=== PATIENT | female | born 1960 | race Caucasian/White ===

== ENCOUNTER 2020-05-21 07:04 | Outpatient (CLI) | payer BC, SELFPAY ==
[2020-05-22 17:24] LABS: COVID-19 RT-PCR Result NEGATIVE (Negative)
== END 2020-05-21 07:24 ==
PROVIDERS: Visit Provider Surgery
DX: Z11.59 Encounter for screening for other viral diseases (principal); Z01.818 Encounter for other preprocedural examination
CPT/HCPCS: U0003

== ENCOUNTER 2021-06-26 15:39 | Outpatient (CLI) | payer BC, SELFPAY ==
--- NOTE | 2021-06-26 | DI.RAD_ITS ---
Exam(s) XR HAND LT COMPLETE XR WRIST LT COMPLETE EXAM: XR HAND LT COMPLETE and XR wrist LT complete CLINICAL HISTORY: LT WRIST PAIN, M25.532. TECHNIQUE: 2D digital imaging was performed of the left wrist and hand. Six views were obtained. A P, lateral and oblique views were obtained. COMPARISON: CR XR WRIST LT COMPLETE from 06/26/2021 CR XR WRIST LT COMPLETE from 06/26/2021 FINDINGS: BONES: No acute fracture is present. No bony destructive lesion is seen. JOINTS: No dislocation present. SOFT TISSUE: Normal. IMPRESSION: No acute abnormality. DATA REPOSITORY: RADIATION DOSE DELIVERED:
== END 2021-06-26 15:59 ==
PROVIDERS: Visit Provider Nurse Practitioner Family
DX: M25.532 Pain in left wrist (principal)
CPT/HCPCS: 73110; 73130

== ENCOUNTER 2021-12-22 10:02 | Day surgery (SDC) | payer BC, SELFPAY ==
[2021-12-22] MEDS: Tropicam./Phenyleph. (1/2.5%) 5 ML BTL OS ×3 (11:14→11:28)
--- NOTE | 2021-12-22 11:14 | W.ANESPRE ---
General Info Date of Service Date Performed: 12/22/21 Height: 5 ft 8 in Weight: 68.039 kg Body Mass Index (BMI): 22.8 Surgical Procedure: Operation Date: 12/22/21 12:10 Proposed Procedure Side Surgeon p Cataract Extraction with IOL Implant Left nAtonio Little MD Meds Allergies and Home Medications Allergies Allergy/AdvReac Type Severity Reaction Status Date / Time No Known Allergies Allergy Unverified 12/22/21 11:06 Home Medication Medication Instructions Recorded atorvastatin 10 mg tablet 10 mg PO HS 12/19/21 cholecalciferol (vitamin D3) 25 1,000 unit PO DAILY 12/19/21 mcg (1,000 unit) tablet (Vitamin D3) coenzyme Q10 100 mg capsule 100 mg PO DAILY 12/19/21 (CoQ-10) levothyroxine 125 mcg tablet 125 mcg PO DAILY 12/19/21 Current Visit Medications: Current Medications Generic Name Dose Route Start Last Admin Trade Name Freq PRN Reason Stop Dose Admin Acetaminophen 1,000 mg 12/22/21 06:00 Acetaminophen 500 Mg Tab PO Q4H PRN PRN Miscellaneous Medication 0 ml 12/22/21 06:00 Prednisolone 1%, Moxifloxacin 0.5%, Nepafenac 0.1% 5ml Btl OS DIRECTED JAYA Miscellaneous Medication 0 ml 12/22/21 06:00 12/22/21 11:14 Tropicam./Phenyleph. (1/2.5%) 5 Ml Btl OS 1 drp DIRECTED JAYA Administration Tetracaine HCl 0 ml 12/22/21 06:00 Tetracaine 0.5% 4 Ml Btl OS DIRECTED JAYA PFSH Active Problems Active Problems: Problem Status Onset Code Posterior subcapsular age-related cataract of left eye H25.042 Medical History Medical History Anesthesia complication Per H&P note: Syncope 2 days later, HR below 35 post-op-Pt states this was during the laminectomy and knee arthroscopy. Per pt. 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 Per pt. 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 of marathon running, moy klein Surgical History Surgical History Hx of arthroscopy of knee Hx of colonoscopy Hx of cystoscopy Hx of laminectomy Tobacco Smoking/Tobacco Use Status: Never Alcohol Alcohol Intake: current Alcohol intake frequency: 0-2 drinks per day Alcohol type: beer Substance Use Substance use: Never Substance use type: does not use Vital Signs and Lab Results Lab Results Blood Type / Crossmatch: No Data to Display Complete Blood Count: No Data to Display Complete Metabolic Panel: No Data to Display Liver Function Panel: No Data to Display Coagulation Panel: No Data to Display Cardiac Panel: No Data to Display Arterial Blood Gas: No Data to Display Venous Blood Gas: No Data to Display Pancreas Panel: No Data to Display Thyroid Panel: No Data to Display Infectious Disease: No Data to Display Blood Cultures: No Data to Display Toxicology Panel: No Data to Display Anesthesia Assessment and Plan Anesthesia History Personal History: Other (Reports bradycardia and syncope two days after every surgery) Family History: No Family History of Anesthesia Complications Exercise Tolerance Exercise Tolerance: Metabolic Equivalents>4 Pertinent Negatives Pertinent Negatives: No Symptoms of GERD, No Major Cardiovascular Symptoms or Complaints, No Major Pulmonary Symptoms or Complaints and No History of CVA/TIA Cardiac & Pulmonary Exam Cardiac Exam: Normal S1/S2 Heart Sounds Pulmonary Exam: Clear Bilateral Breath Sounds Implantable Cardiac Device Does patient have a Pacemaker or an ICD?: No Airway Exam Known Difficult Airway: No Mallampati Class: 2 Mouth Opening: Normal (> 3cm) Thyromental Distance: Greater than 3 cm Neck Range of Motion: Full ROM Neck Circumference: Normal Teeth Condition: Normal Dentition ASA Classification ASA Score: ASA 2 Emergency Case?: No NPO Status NPO Status: NPO Clears >2 hours, Solids >8 hours Anesthesia Plan Resuscitation Status: Full Code Anesthesia Technique: MAC Anesthesia Airway Planned: Natural Airway Monitors Used: Standard Monitors
[2021-12-22 11:19] VITALS: BMI 22.8
[2021-12-22 11:24] VITALS: BP 131/87; PULSE 59; RESP 16; TEMP 36.7; O2SAT 97
[2021-12-22] MEDS: Tetracaine 0.5% 4 ML BTL OS (12:12)
[2021-12-22] MEDS: Balanced Salt Soln.-PLUS 500 ML BAG (12:13)
[2021-12-22] MEDS: Duovisc Viscoelastic System EACH 1 EACH (12:13)
[2021-12-22] MEDS: Lidocaine 2% Jelly 6 ML SYR (12:14)
[2021-12-22] MEDS: Povidone-Iodine Ophth 30 ML BTL (12:15)
[2021-12-22 12:30] VITALS: BP 134/95; PULSE 53; RESP 16; TEMP 36.6; O2SAT 98
--- NOTE | 2021-12-22 12:34 | W.PM.DSUDISC ---
Discharge Plan Disposition Patient Disposition: HOME Condition: Good Discharge Details Attending Provider: Antonio Little Primary Care Provider: No,Local Home Meds and New Rx's Prescriptions: No Action atorvastatin 10 mg Tablet 10 mg PO HS 0RF levothyroxine 125 mcg Tablet 125 mcg PO DAILY 0RF coenzyme Q10 [CoQ-10] 100 mg Capsule 100 mg PO DAILY 0RF cholecalciferol (vitamin D3) [Vitamin D3] 25 mcg (1,000 unit) Tablet 1,000 unit PO DAILY 0RF Discharge Instructions Stand Alone Forms: Post-op Topical Cataract, Angela Chaudhari (DSU) Discharge Orders Discharge Orders: Discharge Order (Routine); Ordered 12/22/21 Ordered By: Antonio Little DS: Diagnosis Discharge Diagnosis (1) Posterior subcapsular age-related cataract of left eye: Status: Resolved
--- NOTE | 2021-12-22 12:34 | W.PM.OP ---
Date of service: 12/22/21 Time of Service: 12:34 Operative Note Operative Note DATE OF PROCEDURE: 12/22/21 PRE-OP DIAGNOSIS: Posterior subcapsular cataract, left eye POST-OP DIAGNOSIS: same PROCEDURE: Cataract extraction using phacoemulsification with intraocular lens implant, left eye SURGEON: Antonio Little ANESTHESIA TYPE: Local By Surgeon and MAC Refer to Anesthesia Record PATHOLOGY: none sent COMPLICATIONS: None Patient was transported to: same day Patient's condition: stable Implants: Deejay and Deejay / [employer] Tecnis [id number] Indications: Progressive decreased vision due to cataract, left eye Procedure Description: CATARACT SURGERY OPERATIVE REPORT PREOPERATIVE DIAGNOSIS: 1. Posterior subcapsular cataract, left eye POSTOPERATIVE DIAGNOSIS: Same OPERATION: 1. Cataract extraction using phacoemulsification with posterior chamber intraocular lens implant, left eye. IOL: IOL Firer Helper/Model: Deejay & Deejay / CELESTE Tecnis [id number] IOL Power: + 25.5 diopters IOL Serial Number: [id number] Optic Diameter: 6.0 mm Haptic/Overall Diameter: 13.0 mm PHACO INFO: Herrera ElectroJeturion Vision System with OZil and Active Fluidics Cumulative Dispersed Energy (CDE): 10.61 seconds SURGEON: Antonio Little MD, JOHANNA ANESTHESIA: Monitored A [facility] (MAC), with local sub-tenon's anesthetic infiltration COMPLICATIONS: None SPECIMENS: None INDICATIONS FOR PROCEDURE: The patient is a 61-year-old lady who is previously status post hyperopic Lasix who has now developed asymptomatic posterior subcapsular cataract in the left eye. The option of cataract surgery was offered to the patient and she wished to proceed. PROCEDURE: The correct surgical eye was identified and marked as the left eye and the pupil was dilated in the preoperative area using mydriatics and cycloplegics. The dilated pupil size was 5.0 mm. She elected to proceed without oral sedation. The patient was brought to the operating room where cardiopulmonary monitoring was instituted and surgical time-out was performed, confirming the correct operative eye and IOL power. Topical anesthesia was administered and ophthalmic povidone-iodine 5% was instilled into the conjunctival fornices. Lidocaine gel was applied to the cornea and the linda-ocular area was prepped with Betadine 10% solution and draped in the usual sterile fashion for intraocular surgery, including an aperture drape. A Tegaderm transparent film dressing was cut in half and used to cover the lashes and lid margins. Care was taken to sequester the lashes and lid margins under the Tegaderm dressing. A lid speculum was placed between the lids of the operative eye and the Herrera Lux[employer] Revalia operating microscope was maneuvered into position. Karli scissors were then used to make a conjunctival buttonhole approximately 6mm posterior to the limbus in the inferonasal quadrant. Blunt dissection was carried out to expose bare sclera, and a blunt-tipped sub-tenon?s anesthesia cannula was introduced and passed posteriorly along the globe where non-preserved plain lidocaine was injected into posterior sub-Tenon?s space. A sideport knife was used to make a paracentesis port superiorly/superiortemporally. Intraocular phenylephrine/lidocaine was injected int the anterior chamber.. The anterior chamber was filled with viscoelastic. A 2.4mm keratome knife was used to create a half-thickness groove at the limbus and then to construct a three-plane near-clear corneal tunnel extending 2.0mm into clear cornea at the 3:00 position. A flap was raised on the anterior capsule and capsulorhexis forceps were used to complete a continuous curvilinear capsulorhexis of 5.0 mm. Balanced salt solution was then used to perform cortical cleaving hydrodissection and nuclear hydrodelineation until the lens could be freely rotated within the capsular bag. The lens nucleus was then disassembled and removed within the capsular bag and iris plane using phacoemulsification. Residual cortical material was removed using the 45-degree angled silicone I/A tip with 0.3mm port. The posterior capsule was carefully polished to remove as much residual lens epithelial cells as safely possible. The capsular bag was then inflated and the anterior chamber deepened with viscoelastic. The lens implant described above was inserted into the capsular bag using the CELESTE [place] Injector. A Kuglen hook was used to dial the IOL into position. Residual viscoelastic was then removed first from posterior to the IOL, then from the anterior chamber using the I/A handpiece. The lens implant was noted to center nicely within the capsular bag. The incisions were stromally hydrated, and the anterior chamber was reformed using BSS. Then 0.5cc of moxifloxacin 1.0mg/ml were injected into the capsular bag and anterior chamber. The incisions were checked with a Weck spear and found to be secure. Several drops of ophthalmic povidone-iodine 5% were then applied to the eye followed by two drops of Imprimis combination prednisolone/moxifloxacin/nepafenac solution. The drapes were removed and a clear plastic protective eye shield was placed over the eye. The patient was then returned to Same Day Surgery in stable condition.
--- NOTE | 2021-12-22 13:14 | W.ANESPOSTOP ---
Postoperative Evaluation Date, Time and Location Date Performed: 12/22/21 Time Performed: 12:30 Patient Location: Day Surgery Unit Vital Signs Most Recent Imported Vital Signs: Most Recent Vital Signs Temp Pulse Resp BP Pulse Ox 36.6 C 53 L 16 134/95 H 98 12/22/21 12:30 12/22/21 12:30 12/22/21 12:30 12/22/21 12:30 12/22/21 12:30 Pain Score Most Recent Pain Score: Most Recent Pain Score Pain Level 0 12/22/21 12:30 Assessment Mental Status: Awake (Alert & Oriented to Patient Baseline) Airway and Respiratory Function: Patent airway with normal (patient baseline) respiratory exam Cardiovascular Function: Hemodynamically Stable Hydration Status: Adequately Hydrated Nausea & Vomiting: No Nausea or Vomiting Pain: Pt. Denies Any Pain Peripheral Nerve Block: Other (Local by Dr. Little)
== END 2021-12-22 12:47 | disposition home or self-care (01) ==
PROVIDERS: Visit Provider Ophthalmology
PROC: (CPT 66984; principal; 2021-12-22 12:00)
DX: H25.042 Posterior subcapsular polar age-related cataract, left eye (principal); I10 Essential (primary) hypertension; E78.5 Hyperlipidemia, unspecified; E03.9 Hypothyroidism, unspecified
CPT/HCPCS: 66984; V2632

== ENCOUNTER 2022-01-05 10:05 | Day surgery (SDC) | payer BC, SELFPAY ==
[2022-01-05 10:48] VITALS: BP 151/82; PULSE 55; RESP 18; TEMP 36.1; O2SAT 100
[2022-01-05] MEDS: Tropicam./Phenyleph. (1/2.5%) 5 ML BTL OD ×3 (11:03→11:23)
--- NOTE | 2022-01-05 11:21 | W.ANESPRE ---
General Info Date of Service Date Performed: 01/05/22 Height: 5 ft 8 in Weight: 68.239 kg Body Mass Index (BMI): 22.8 Surgical Procedure: Operation Date: 01/05/22 12:10 Proposed Procedure Side Surgeon p Cataract Extraction with IOL Implant Right Antonio Little MD Meds Allergies and Home Medications Allergies Allergy/AdvReac Type Severity Reaction Status Date / Time No Known Allergies Allergy Unverified 01/01/22 14:19 Home Medication Medication Instructions Recorded atorvastatin 10 mg tablet 10 mg PO HS 12/19/21 cholecalciferol (vitamin D3) 25 1,000 unit PO DAILY 12/19/21 mcg (1,000 unit) tablet (Vitamin D3) coenzyme Q10 100 mg capsule 100 mg PO DAILY 12/19/21 (CoQ-10) levothyroxine 125 mcg tablet 125 mcg PO DAILY 12/19/21 Current Visit Medications: Current Medications Generic Name Dose Route Start Last Admin Trade Name Freq PRN Reason Stop Dose Admin Acetaminophen 1,000 mg 01/05/22 06:00 Acetaminophen 500 Mg Tab PO Q4H PRN PRN Miscellaneous Medication 0 ml 01/05/22 06:00 Prednisolone 1%, Moxifloxacin 0.5%, Nepafenac 0.1% 5ml Btl OD DIRECTED JAYA Miscellaneous Medication 0 ml 01/05/22 06:00 01/05/22 11:11 Tropicam./Phenyleph. (1/2.5%) 5 Ml Btl OD 1 drp DIRECTED JAYA Administration Tetracaine HCl 0 ml 01/05/22 06:00 Tetracaine 0.5% 4 Ml Btl OD DIRECTED JAYA PFSH Active Problems Active Problems: Problem Status Onset Code Posterior subcapsular age-related cataract, right eye H25.041 Nuclear sclerotic cataract of right eye H25.11 Posterior subcapsular age-related cataract of left eye H25.042 Medical History Medical History Anesthesia complication Per H&P note: Syncope 2 days later, HR below 35 post-op-Pt states this was during the laminectomy and knee arthroscopy. Per pt. 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 hx of marathon running, usha[place]abbeericky; SEE PRIOR NOTE Surgical History Surgical History Hx of arthroscopy of knee Hx of colonoscopy Hx of cystoscopy Hx of laminectomy Tobacco Smoking/Tobacco Use Status: Never Alcohol Alcohol Intake: current Alcohol intake frequency: 0-2 drinks per day Alcohol type: beer Substance Use Substance use: Never Substance use type: does not use Vital Signs and Lab Results Vital Signs Most Recent Vital Signs in EMR: Most Recent Vital Signs Temp Pulse Resp BP Pulse Ox 36.1 C L 55 L 18 151/82 H 100 01/05/22 10:48 01/05/22 10:48 01/05/22 10:48 01/05/22 10:48 01/05/22 10:48 Lab Results Blood Type / Crossmatch: No Data to Display Complete Blood Count: No Data to Display Complete Metabolic Panel: No Data to Display Liver Function Panel: No Data to Display Coagulation Panel: No Data to Display Cardiac Panel: No Data to Display Arterial Blood Gas: No Data to Display Venous Blood Gas: No Data to Display Pancreas Panel: No Data to Display Thyroid Panel: No Data to Display Infectious Disease: No Data to Display Blood Cultures: No Data to Display Toxicology Panel: No Data to Display Anesthesia Assessment and Plan Anesthesia History Personal History: Other Family History: No Family History of Anesthesia Complications Exercise Tolerance Exercise Tolerance: Metabolic Equivalents>4 Pertinent Negatives Pertinent Negatives: No Symptoms of GERD Cardiac & Pulmonary Exam Cardiac Exam: Normal S1/S2 Heart Sounds Pulmonary Exam: Clear Bilateral Breath Sounds Implantable Cardiac Device Does patient have a Pacemaker or an ICD?: No Airway Exam Known Difficult Airway: No Mallampati Class: 2 Mouth Opening: Normal (> 3cm) Thyromental Distance: Greater than 3 cm Neck Range of Motion: Full ROM Neck Circumference: Normal Teeth Condition: Normal Dentition ASA Classification ASA Score: ASA 2 Emergency Case?: No NPO Status NPO Status: NPO Clears >2 hours, Solids >8 hours Anesthesia Plan Resuscitation Status: Full Code Anesthesia Technique: MAC Anesthesia Airway Planned: Natural Airway Monitors Used: Standard Monitors
[2022-01-05 11:22] VITALS: BMI 22.8
[2022-01-05] MEDS: Tetracaine 0.5% 4 ML BTL OD (11:52)
[2022-01-05] MEDS: Lidocaine 2% Jelly 6 ML SYR (11:53)
[2022-01-05] MEDS: Povidone-Iodine Ophth 30 ML BTL (11:54)
[2022-01-05] MEDS: Balanced Salt Soln.-PLUS 500 ML BAG (12:00)
[2022-01-05] MEDS: Duovisc Viscoelastic System EACH 1 EACH (12:00)
[2022-01-05 12:18] VITALS: BP 137/80; PULSE 52; RESP 16; TEMP 36.7; O2SAT 98
--- NOTE | 2022-01-05 12:22 | W.PM.DSUDISC ---
Discharge Plan Disposition Patient Disposition: HOME Condition: Good Discharge Details Attending Provider: Antonio Little Primary Care Provider: No,Local Home Meds and New Rx's Prescriptions: No Action atorvastatin 10 mg Tablet 10 mg PO HS 0RF levothyroxine 125 mcg Tablet 125 mcg PO DAILY 0RF coenzyme Q10 [CoQ-10] 100 mg Capsule 100 mg PO DAILY 0RF cholecalciferol (vitamin D3) [Vitamin D3] 25 mcg (1,000 unit) Tablet 1,000 unit PO DAILY 0RF Discharge Instructions Stand Alone Forms: Post-op Topical Cataract, Angela Chaudhari (DSU) Discharge Orders Discharge Orders: Discharge Order (Routine); Ordered 01/05/22 Ordered By: Antonio Little DS: Diagnosis Discharge Diagnosis (1) Posterior subcapsular age-related cataract, right eye: Status: Resolved (2) Nuclear sclerotic cataract of right eye: Status: Resolved
--- NOTE | 2022-01-05 12:23 | W.PM.OP ---
Date of service: 01/05/22 Time of Service: 12:23 Operative Note Operative Note DATE OF PROCEDURE: 01/05/22 PRE-OP DIAGNOSIS: Nuclear/posterior subcapsular cataract, right eye Status post hyperopic LASIK POST-OP DIAGNOSIS: same PROCEDURE: Cataract extraction using phacoemulsification with intraocular lens implant, right eye SURGEON: Antonio Little ANESTHESIA TYPE: Local By Surgeon and MAC Refer to Anesthesia Record ESTIMATED BLOOD LOSS: 0 PATHOLOGY: none sent COMPLICATIONS: None Patient was transported to: same day Patient's condition: stable Implants: Deejay & Deejay/CELESTE Tecnis [id number] Indications: Progressive visual loss due to cataract, right eye Procedure Description: CATARACT SURGERY OPERATIVE REPORT PREOPERATIVE DIAGNOSIS: 1. Nuclear/posterior subcapsular cataract, right eye 2. Status post hyperopic LASIK POSTOPERATIVE DIAGNOSIS: Same OPERATION: 1. Cataract extraction using phacoemulsification with posterior chamber intraocular lens implant, right eye. IOL: IOL Newspaper Stuffer/Model: Deejay & Deejay / CELESTE Tecnis [id number] IOL Power: + 26.0 diopters IOL Serial Number: [id number] Optic Diameter: 6.0mm Haptic/Overall Diameter: 13.0mm PHACO INFO: Herrera [employer]urion Vision System with OZil and Active Fluidics Cumulative Dispersed Energy (CDE): 3.71 seconds SURGEON: Antonio Little MD, JOHANNA ANESTHESIA: Monitored Anesthesia Care (MAC), with local sub-tenon's anesthetic infiltration COMPLICATIONS: None SPECIMENS: None INDICATIONS FOR PROCEDURE: The patient is a 61-year-old lady who was previously undergone hyperopic Lasix. She has now developed symptomatic bilateral cataracts. She has already undergone cataract surgery in the left eye and is doing well postoperatively. She now presents for cataract surgery in the right eye. PROCEDURE: The correct surgical eye was identified and marked as the right eye and the pupil was dilated in the preoperative area using mydriatics and cycloplegics. The dilated pupil size was 6.0 mm. She elected to proceed without oral sedation. The patient was brought to the operating room where cardiopulmonary monitoring was instituted and surgical time-out was performed, confirming the correct operative eye and IOL power. Topical anesthesia was administered and ophthalmic povidone-iodine 5% was instilled into the conjunctival fornices. Lidocaine gel was applied to the cornea and the linda-ocular area was prepped with Betadine 10% solution and draped in the usual sterile fashion for intraocular surgery, including an aperture drape. A Tegaderm transparent film dressing was cut in half and used to cover the lashes and lid margins. Care was taken to sequester the lashes and lid margins under the Tegaderm dressing. A lid speculum was placed between the lids of the operative eye and the Herrera [employer] operating microscope was maneuvered into position. Karli scissors were then used to make a conjunctival buttonhole approximately 6mm posterior to the limbus in the inferonasal quadrant. Blunt dissection was carried out to expose bare sclera, and a blunt-tipped sub-tenon?s anesthesia cannula was introduced and passed posteriorly along the globe where non-preserved plain lidocaine was injected into posterior sub-Tenon?s space. A sideport knife was used to make a paracentesis port inferotemporally. Intraocular phenylephrine/lidocaine was injected into the anterior chamber. The anterior chamber was filled with viscoelastic. A 2.4mm keratome knife was used to create a half-thickness groove at the limbus and then to construct a three-plane near-clear corneal tunnel extending 2.0mm into clear cornea superiortemporally. A flap was raised on the anterior capsule and capsulorhexis forceps were used to complete a continuous curvilinear capsulorhexis of 5.5 mm. Balanced salt solution was then used to perform cortical cleaving hydrodissection and nuclear hydrodelineation until the lens could be freely rotated within the capsular bag. The lens nucleus was then disassembled and removed within the capsular bag and iris plane using phacoemulsification. Residual cortical material was removed using the I/A handpiece. The posterior capsule was carefully polished to remove as much residual lens epithelial cells as safely possible. The capsular bag was then inflated and the anterior chamber deepened with viscoelastic. The lens implant described above was inserted into the capsular bag using the CELESTE [place] Injector. A Kuglen hook was used to dial the IOL into position. Residual viscoelastic was then removed first from posterior to the IOL, then from the anterior chamber using the I/A handpiece. The lens implant was noted to center nicely within the capsular bag. The incisions were stromally hydrated, and the anterior chamber was reformed using BSS. Then 0.5cc of moxifloxacin 1.0mg/ml were injected into the capsular bag and anterior chamber. The incisions were checked with a Weck spear and found to be secure. Several drops of ophthalmic povidone-iodine 5% were then applied to the eye followed by two drops of Imprimis combination prednisolone/moxifloxacin/nepafenac solution. The drapes were removed and a clear plastic protective eye shield was placed over the eye. The patient was then returned to Same Day Surgery in stable condition.
--- NOTE | 2022-01-05 12:36 | W.ANESPOSTOP ---
Postoperative Evaluation Date, Time and Location Date Performed: 01/05/22 Time Performed: 12:36 Patient Location: Day Surgery Unit Vital Signs Most Recent Imported Vital Signs: Most Recent Vital Signs Temp Pulse Resp BP Pulse Ox 36.7 C 52 L 16 137/80 98 01/05/22 12:18 01/05/22 12:18 01/05/22 12:18 01/05/22 12:18 01/05/22 12:18 Pain Score Most Recent Pain Score: Most Recent Pain Score Pain Level 0 01/05/22 12:18 Assessment Mental Status: Awake (Alert & Oriented to Patient Baseline) Airway and Respiratory Function: Patent airway with normal (patient baseline) respiratory exam Cardiovascular Function: Hemodynamically Stable Hydration Status: Adequately Hydrated Nausea & Vomiting: No Nausea or Vomiting Pain: Pt. Denies Any Pain Peripheral Nerve Block: Patient did not receive a nerve block
== END 2022-01-05 12:32 | disposition home or self-care (01) ==
PROVIDERS: Visit Provider Ophthalmology
PROC: (CPT 66984; principal; 2022-01-05 12:00)
DX: H25.041 Posterior subcapsular polar age-related cataract, right eye (principal); E03.9 Hypothyroidism, unspecified; E78.5 Hyperlipidemia, unspecified
CPT/HCPCS: 66984; V2632